=== PATIENT | female | born 1955 | race Caucasian/White ===

== ENCOUNTER → 2016-12-29 | Outpatient (CLI) | payer OTHER ==
[~2016-12-29] MED LIST: BREO ELLIP1 PUFF/DOS IH; CELEXA DPS20 MG PO; CIPRO DPS500 MG PO; GLUCOTROL DPS5 MG PO; LOPRESSOR DPS50 MG PO; MELOXICAM15 MG PO; METOPROLOL TART25 MG PO; MULTI VITAMIN1 EACH PO; MULTICHEW CHEW1 EACH PO; NORCO 5-325 TA1 EACH PO; OMEPRAZOLE40 MG PO; ONGLYZA5 MG PO; PROAIR RESPICL90 MCG IH; PROBIOTIC1 EAC1 PO; SALINE NASAL SP88 ML NS; SENOKOT8.6 MG PO; SINGULAIR10 MG PO; TYLENOL325 MG PO; VIACTIV SOFT C1 EACH PO; XARELTO10 MG PO; ZOCOR DPS20 MG PO
== END | disposition home or self-care (01) ==
LOC: RAD.S 15:10 → PTH.S 15:30 → RAD.S 16:00
DX: R42 Dizziness and giddiness (principal); H70.91 Unspecified mastoiditis, right ear; R90.89 Other abnormal findings on diagnostic imaging of central nervous system

== ENCOUNTER 2017-02-03 05:37 | Day surgery (SDC) | payer OTHER ==
[~2017-02-03] VITALS: Ht 165.1 cm; Wt 88.0 kg
[~2017-02-03 05:37] MED LIST changes: -BREO ELLIP1 PUFF/DOS IH; -CIPRO DPS500 MG PO; -GLUCOTROL DPS5 MG PO; -MULTI VITAMIN1 EACH PO; -PROBIOTIC1 EAC1 PO; -SALINE NASAL SP88 ML NS; -SINGULAIR10 MG PO; -ZOCOR DPS20 MG PO
--- NOTE | 2017-02-11 08:04 | HP ---
ADMIT: 02/03/2017 RM/LOC: [facility] MR#: [id number] [address] [address] ADDISON DANIEL [address] [place] [id number] Pre-OP History and Physical SEX: F AGE: 61 : 1955 DATE OF SERVICE: HISTORY OF PRESENT ILLNESS: Ms. Daniel is 61-year-old. She is admitted for surgical treatment of chronic sinus infection that will include revision of functional endoscopic sinus surgery, debridement of maxillary sinuses bilateral, possible culture contents of maxillary sinus, and revision of frontal sinus with balloon dilation of an opacified and obstructed right nasal frontal duct. She has had history of chronic sinus infection. She has undergone endoscopic sinus surgery on several occasions initially in 1996, subsequent revision in 2001, and again a revision with balloon dilation in 2016 (November 06, 2015). She had initial improvement in sinus infection and symptoms with subsequent recurrence and examination shows abnormalities within the paranasal sinuses predominantly involving the maxillary anterior ethmoid and frontal regions. She has symptoms of plugged feeling right ear. She has a tympanostomy tube present in the right ear, which is patent. She had MRI scan showing normal intracranium, but abnormal paranasal sinuses and mildly abnormal right mastoid. Treatment options have been discussed in light of the persistent symptoms despite aggressive and long-term medical treatment. Surgical intervention has been again elected. She is well aware of the rationale and the risks including intraorbital and intracranial risks and admitted at this time for general anesthesia. MEDICATIONS: Prior to admission: 1. Glipizide. 2. Metoprolol. 3. Dulera. 4. Flonase. 5. Celexa. 6. Mobic. 7. Singulair. ALLERGIES: MORPHINE, LEVAQUIN, AND PSEUDOEPHEDRINE. PAST MEDICAL HISTORY: Multiple sinus surgeries as noted above. She has had three back surgeries. Tonsillectomy, adenoidectomy, cholecystectomy, carpal tunnel release, section, tubal ligation, and appendectomy. REVIEW OF SYSTEMS: Positive for lower respiratory bronchoconstriction, adult onset diabetes, hypertension, and history of IV contrast reaction. SOCIAL HISTORY: She drinks caffeine. She does not drink alcohol. She does not use tobacco and is not exposed to secondhand smoke. FAMILY HISTORY: No known anesthetic complications. No coagulopathies. PHYSICAL EXAMINATION: GENERAL: A 61-year-old, in no acute distress. HEENT: Pupils are equal. No proptosis. Extraocular movements intact. Ear canals, TMs, and middle ears normal. Nose, tenacious mucinous debris involving the floor of the nasal cavity, floor of each maxillary sinus. ADMIT: 02/03/2017 RM/LOC: [facility] MR#: [id number] [address] [address] ADDISON DANIEL [address] [place], [place] [id number] Pre-OP History and Physical SEX: F AGE: 61 : 1955 Ethmoids show edema. Anterior ethmoids and agger nasi show edema and nasofrontal recess compromise. Unable to visualize nasofrontal duct. The sphenoethmoid recess and nasopharynx appears clear. LUNGS: Clear. HEART: Rhythm regular. EXTREMITIES: No cyanosis. No edema. IMPRESSION: 1. Chronic sinusitis, currently maxillary, frontal, bilateral. 2. Chronic otic symptoms with functioning tympanostomy tube, right ear. 3. Asthma. 4. Adult-onset diabetes. 5. Hypertension. 6. IV contrast reaction. PLAN: Revision of FESS with balloon dilation, frontal duct. Thad Rivera MD/ albaro JOB #: [id number] CC: Thad Rivera, Attending Physician UNKNOWN, Family Physician
[2017-02-11] MEDS ORDERED: GLUCOTROL DPS5 MG PO (13:05)
[2017-02-11] MEDS ORDERED: SINGULAIR10 MG PO (13:06)
[2017-02-11] MEDS ORDERED: ZOCOR DPS20 MG PO (13:06)
[2017-02-11] MEDS ORDERED: BREO ELLIP1 PUFF/DOS IH (13:06)
[2017-02-11] MEDS ORDERED: PROBIOTIC1 EAC1 PO (13:08)
[2017-02-11] MEDS ORDERED: MULTI VITAMIN1 EACH PO (13:08)
[2017-02-11] MEDS ORDERED: SALINE NASAL SP88 ML NS (13:09)
[2017-02-11] MEDS ORDERED: CIPRO DPS500 MG PO (13:11)
--- NOTE | 2017-02-20 07:11 | OR ---
ADMIT: 02/03/2017 RM/LOC: [facility] MR#: [id number] [address] [address] ADDISON DANIEL [address] [place] [address] Operative/Delivery Room Report SEX: F AGE: 61 : 1955 SURGERY DATE: 02/03/2017 SURGEON: Thad Rivera MD PREOPERATIVE DIAGNOSIS: Chronic sinusitis, maxillary, frontal. POSTOPERATIVE DIAGNOSIS: Chronic sinusitis, maxillary, frontal. OPERATIONS: Bilateral functional endoscopic sinus surgery with maxillary sinus antrostomy revisions, bilateral frontal antrostomies with balloon dilation. ANESTHESIA: General oral endotracheal. BLOOD LOSS: 40 mL. COMPLICATIONS: Postoperative right posterior nasal bleed, requiring placement of Telfa nasal pack. COMMENT: Culture obtained, left frontal sinus. DESCRIPTION OF PROCEDURE: With the patient in supine position, general endotracheal anesthesia, her eyes were taped. Anterior face was cleansed, and the patient was draped sterilely. Nose was examined with a nasal speculum. Cotton pledgets with Afrin were placed for mucosal decongestion of the turbinates, after which, the nose was examined with a 0-degree endoscope. The middle turbinates and middle meatal tissues were inflated with Xylocaine with epinephrine 1:100,000. There was lateralization of the right middle turbinate obscuring visualization, and this required trimming of the middle turbinate with the suction shaver allowing improved visualization of the maxillary antrostomy. There were synechial and edematous tissues involving the anterior fontanelle. These tissues required removal with side-biting cutting forceps and the suction shaver. Dissection was continued to delineate the maxillary infundibulum. The frontal recess was then examined. Edematous changes were present and required trimming with a ball-tip probe and suction shaver. The os of the frontal duct was identified, and the Acclarent frontal balloon dilator was used then to identify the duct. The fiberoptic guidewire was placed advanced through the nasofrontal duct into the frontal sinus as evidenced by transillumination. The balloon was then advanced, and the duct expanded to 6 mm. The balloon was removed, and inspection revealed a patent frontal duct. A small amount of mucosal edematous changes required trimming again at the os. Prior to dilation, dehiscence of the lateral lamina papyracea was identified. The periorbita was identified but remained intact through the dissection. The left side was then examined. The middle meatal tissues and the anterior ethmoid tissues treated by injection with Xylocaine with epinephrine. Following which, the maxillary os required revision by dissection of the anterior fontanelle. Scar and edematous tissues were present, and following ADMIT: 02/03/2017 RM/LOC: [facility] MR#: [id number] [address] [place] [id number] ADDISON DANIEL [address] [place] [address] Operative/Delivery Room Report SEX: F AGE: 61 : 1955 the dissection, there was good delineation of the maxillary infundibulum and good visualization of the maxillary sinus. The frontal recess contained edematous changes. The Acclarent balloon system was then again used to identify the frontal duct and frontal sinus. The balloon was advanced and expanded to 6 mm. The sinus contained mucopurulent material specimen, which was removed with curved antral suction and sent for culture and sensitivity. The remainder was cleaned with the suction, and the balloon was again used to dilate a second time to 6 mm affording patency of the frontal duct and good visualization of the frontal sinus. The left ethmoid complex remained intact through the dissection. During the procedure, she lost approximately 20 to 30 mL of blood immediately following the dissection, and during emergence, she experienced arterial bleeding from the right side of her nose. This appeared to rise at the cephalad portion of the middle turbinate. A Telfa packing was then fashioned, coated with bacitracin ointment, and placed extending from anterior to posterior choana and affording good control of the arterial bleed. The pack was sutured to the columellar tissues with 3-0 Prolene. Her pupils remained equal. There was no proptosis. She emerged from general anesthesia in the operating room, extubated in the operating room, and transferred to the recovery room in good condition. Thad Rivera MD/ albaro JOB #: [id number] CC: Thad Rivera MD, Attending Physician NO FAMILY PHYSICIAN, Family Physician
== END 2017-02-03 12:25 | disposition home or self-care (01) ==
LOC: SSS 05:37
PROC: 09BT4ZZ Excision of Left Frontal Sinus, Percutaneous Endoscopic Approach (ICD-10-PCS; principal; 2017-02-03)
PROC: 09BR4ZZ Excision of Left Maxillary Sinus, Percutaneous Endoscopic Approach (ICD-10-PCS; principal; 2017-02-03)
PROC: 09BQ4ZZ Excision of Right Maxillary Sinus, Percutaneous Endoscopic Approach (ICD-10-PCS; principal; 2017-02-03)
DX: J32.8 Other chronic sinusitis (principal); J45.909 Unspecified asthma, uncomplicated; I10 Essential (primary) hypertension; K21.9 Gastro-esophageal reflux disease without esophagitis; E11.9 Type 2 diabetes mellitus without complications; Z88.1 Allergy status to other antibiotic agents; Z88.5 Allergy status to narcotic agent; Z91.041 Radiographic dye allergy status; Z88.8 Allergy status to other drugs, medicaments and biological substances; Z90.49 Acquired absence of other specified parts of digestive tract; Z98.51 Tubal ligation status; Z98.890 Other specified postprocedural states

== ENCOUNTER 2017-02-09 04:04 | Observation (INO) | payer OTHER ==
[~2017-02-09] VITALS: Ht 165.1 cm; Wt 88.0 kg
--- NOTE | 2017-02-09 06:56 | ER ---
ADMIT: 02/09/2017 RM/LOC: ER [facility] MR#: [id number] [address] [address] FREDY ADDISON Nadia [address] [place] [address] Emergency Room Report SEX: F AGE: 61 : 1955 DATE: 02/09/2017 The patient is a 61-year-old female, day #6 postop functional endoscopic sinus surgery, had her packing removed on Thursday by Dr. Rivera, awoke this morning with profuse bleeding right side. Transported by [facility]. Exam remarkable for nontoxic, afebrile female with profuse bright red blood in right naris. Pressure was applied, clots were cleared, Afrin spray, clamp followed by Zofran 8 mg IV push, tranexamic acid 1 g IV piggyback with good clot formation. Examined with otoscope and headlight with no obvious source of bleeding, but diffuse ooze in both anterior septums. Notified Dr. Rivera, who examined in Emergency Department. Jose Yu MD/ albaro JOB #: [id number] CC: Jose Yu MD, Attending Physician MD Edenilson Chavez MD
[2017-02-11] MEDS ORDERED: GLUCOTROL DPS5 MG PO (13:05)
[2017-02-11] MEDS ORDERED: ZOCOR DPS20 MG PO (13:06)
[2017-02-11] MEDS ORDERED: BREO ELLIP1 PUFF/DOS IH (13:06)
[2017-02-11] MEDS ORDERED: SINGULAIR10 MG PO (13:06)
[2017-02-11] MEDS ORDERED: MULTI VITAMIN1 EACH PO (13:08)
[2017-02-11] MEDS ORDERED: PROBIOTIC1 EAC1 PO (13:08)
[2017-02-11] MEDS ORDERED: SALINE NASAL SP88 ML NS (13:09)
[2017-02-11] MEDS ORDERED: CIPRO DPS500 MG PO (13:11)
--- NOTE | 2017-02-16 07:03 | OR ---
ADMIT: 02/09/2017 RM/LOC: 8 [facility] MR#: [id number] [address] [address] ADDISON DANIEL [address] [place], [place] [id number] Operative/Delivery Room Report SEX: F AGE: 61 : 1955 SURGERY DATE: 02/09/2017 SURGEON: Thad Rivera MD PREOPERATIVE DIAGNOSIS: Postoperative endoscopic sinus surgery hemorrhage, right nasal cavity posterior. POSTOPERATIVE DIAGNOSIS: 1. Postoperative endoscopic sinus surgery hemorrhage, right nasal cavity posterior. 2. Sphenopalatine branch to middle turbinate arterial bleed. OPERATION: 1. Nasal endoscopy. 2. Debridement of nasal cavity and paranasal sinuses with electrocautery of arterial bleed, posterior aspect right middle turbinate. ANESTHESIA: General oral endotracheal. BLOOD LOSS: 100 mL. COMPLICATIONS: None. PACKING: None. DESCRIPTION OF PROCEDURE: With the patient in supine position, general endotracheal anesthesia, nose was examined with the #10 Callahan tip suction. I cleaned the sanguinous debris from the nasal cavity and oropharynx. Large clot was removed from the right side posterior nasal cavity and this allowed visualization with the 0 degree endoscope. The frontal recess of each side was then debrided of MeroGel packing that had been placed at the time of ADMIT: 02/09/2017 RM/LOC: 8 [facility] MR#: [id number] [address] [address] ADDISON DANIEL [address] [place], [place] [id number] Operative/Delivery Room Report SEX: F AGE: 61 : 1955 endoscopic surgery and the propel nasal splint removed from the left frontal recess to allow improved visualization. The bleeding site was identified posteriorly involving the cephalad portion of the middle turbinate. A prominent pulsatile artery was treated by suction cautery and this afforded control of the arterial bleed. The nose was again cleaned with suctioning. Reexamined with the 0 and the 45 degree endoscopes. The antrostomies were patent. There was no active purulent discharge. Frontal recess and frontal ducts appeared patent bilaterally. Without evidence of sinus or arterial bleed, I elected not to repack the nose and the operation was completed. She tolerated this well. She emerged from general anesthesia in the operating and was extubated in the operating room, and transferred to the recovery room in good condition. She experienced no proptosis. Pupils remained equal. Thad Rivera MD/ albaro JOB #: [id number] CC: Thad Rivera MD, Attending Physician Thad Rivera MD, Family Physician
== END 2017-02-10 10:25 | disposition home or self-care (01) ==
LOC: ER 04:04 → SSS 06:30 → 6PED 09:59
PROVIDERS: ADMIT Otolaryngology
PROC: 0W3Q8ZZ Control Bleeding in Respiratory Tract, Via Natural or Artificial Opening Endoscopic (ICD-10-PCS; principal; 2017-02-09)
DX: J95.831 Postprocedural hemorrhage of a respiratory system organ or structure following other procedure (principal); J45.909 Unspecified asthma, uncomplicated; Z87.891 Personal history of nicotine dependence; I10 Essential (primary) hypertension; E11.9 Type 2 diabetes mellitus without complications; Z90.49 Acquired absence of other specified parts of digestive tract; Z96.652 Presence of left artificial knee joint; K21.9 Gastro-esophageal reflux disease without esophagitis; Z98.890 Other specified postprocedural states; Z79.899 Other long term (current) drug therapy; Z91.041 Radiographic dye allergy status; Z88.8 Allergy status to other drugs, medicaments and biological substances; Z88.5 Allergy status to narcotic agent